=== PATIENT | male | born 1940 | race Caucasian/White ===

== ENCOUNTER → 2016-09-25 | Outpatient (CLI) | payer MEDICARE ==
[~2016-09-25] MED LIST: ASPI325T8 PO; GADOBUTROL 7.5 MMOL/7.5 ML VIAL IV ONE; LANS15CA78 PO; LISI10TA2 PO; SIMV20TA3 PO; TAMS0.4C2 PO
--- NOTE | 2016-09-25 12:25 | KCIC ---
MRI of the Brain without and with Contrast 09/25/2016 Clinical History: Tremors involving both hands for the last year which is worsening. Technique: Unenhanced T1-weighted sagittal and axial and FLAIR, T2-weighted, gradient echo and diffusion-weighted axial images of the brain were obtained. After the intravenous administration of 7 cc of Gadavist, enhanced T1-weighted axial and coronal images of the brain were obtained. Findings: No previous studies are available for comparison. There is generalized parenchymal atrophy. Patchy and small scattered areas of abnormally increased signal intensity are seen within the periventricular and subcortical white matter of both cerebral hemispheres on the FLAIR and T2-weighted images consistent with areas of relatively mild small vessel ischemic disease. No acute parenchymal abnormality is seen. No abnormal area of contrast enhancement is noted. No extra-axial fluid collection is seen. There is no MRI evidence of acute ischemia/infarction. Mild mucosal thickening is seen scattered throughout the paranasal sinuses. Normal flow voids are seen within the major vascular structures surrounding the brain parenchyma. Impression: No acute parenchymal abnormality is seen. Electronically signed by: Tad Arroyo MD (09/25/2016 12:21 PM)
== END | disposition home or self-care (01) ==
LOC: KCIC MRI 09:12
PROVIDERS: ATTEND Neurological Surgery
DX: R25.1 Tremor, unspecified (principal)
CPT/HCPCS: 70553; 82565; A9585